=== PATIENT | male | born 1985 | race Caucasian/White ===

== ENCOUNTER 2020-08-23 16:52 | Emergency (ER) | payer MEDICARE, MEDICAID ==
[~2020-08-23] VITALS: Ht 177.8 cm; Wt 127.3 kg
[~2020-08-23 16:52] MED LIST: AMBIEN 10MG10 MG PO; COLACE 100100 MG/CAP PO; RISPERDAL 2M2 MG/TAB PO; SEROQUEL200 MG PO
[2020-08-23 17:06] VITALS: TEMP 98.4
[2020-08-23 19:10] VITALS: BP 130/80; PULSE 88
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
== END 2020-08-23 19:15 | disposition home or self-care (01) ==
LOC: COL.ER 16:52
DX: S42.211A Unspecified displaced fracture of surgical neck of right humerus, initial encounter for closed fracture (principal); S20.219A Contusion of unspecified front wall of thorax, initial encounter; R62.50 Unspecified lack of expected normal physiological development in childhood; X58.XXXA Exposure to other specified factors, initial encounter